=== PATIENT | female | born 1965 | race Caucasian/White ===

== ENCOUNTER 2021-07-06 12:48 | Emergency (ER) | payer OTHER ==
[2021-07-06 13:04] VITALS: BP 135/88; PULSE 83; TEMP 99; BMI 24.1
[2021-07-07 16:09] LABS: SARS-CoV-2 NAA Not Detected (Not Detected)
== END 2021-07-06 14:27 | disposition home or self-care (01) ==
LOC: FER 12:48
DX: J40 Bronchitis, not specified as acute or chronic (principal); Z11.52 Encounter for screening for COVID-19
CPT/HCPCS: 71045-TC-FY; 99284-25; C9803; U0003; U0005

== ENCOUNTER 2021-11-30 02:28 | Emergency (ER) | payer OTHER ==
[2021-11-30 02:34] VITALS: BP 148/90; PULSE 82; TEMP 98.9; BMI 23.9
== END 2021-11-30 03:21 | disposition home or self-care (01) ==
LOC: FER 02:28
DX: F41.9 Anxiety disorder, unspecified (principal)
CPT/HCPCS: 99281-25

== ENCOUNTER 2022-02-03 10:54 | Emergency (ER) | payer OTHER ==
[2022-02-03 11:07] VITALS: BP 130/77; PULSE 73; TEMP 98.6; BMI 23.8
== END 2022-02-03 11:45 | disposition home or self-care (01) ==
LOC: FER 10:54
DX: G51.32 Clonic hemifacial spasm, left (principal); H53.8 Other visual disturbances
CPT/HCPCS: 99281-25

== ENCOUNTER 2022-04-12 11:07 | Emergency (ER) | payer OTHER ==
[2022-04-12 11:23] VITALS: BP 120/68; PULSE 67; TEMP 97.9; BMI 23.6
== END 2022-04-12 12:31 | disposition home or self-care (01) ==
LOC: FER 11:07
DX: R55 Syncope and collapse (principal)
CPT/HCPCS: 93005; 93010; 99283-25

== ENCOUNTER 2022-04-20 00:09 | Emergency (ER) | payer OTHER ==
[2022-04-20] MEDS ORDERED: SODIUM CHLORIDE 1,000 ML IV STA (00:32)
[2022-04-20] MEDS ORDERED: ACETAMINOPHEN 1000 MG/100 ML BAG IVPB ONE (00:32)
[2022-04-20] MEDS ORDERED: METOCLOPRAMIDE HCL INJECTION 10 MG/2 ML VIAL IVPB ONE (00:32)
[2022-04-20 00:36] VITALS: TEMP 98.8; BMI 23.1
[2022-04-20] MEDS ORDERED: METOCLOPRAMIDE HCL INJECTION 10 MG/2 ML VIAL ONE (00:46)
[2022-04-20] MEDS ORDERED: ACETAMINOPHEN INJECTION 100 ML IVPB ONE (00:47)
[2022-04-20 01:47] LABS: HEMATOCRIT 32.2 % (32.4-45.2); HEMOGLOBIN 10.6 GM/dL (10.7-15.3); MCH 27.5 pg (25.7-33.7); MCHC 32.9 g/dl (32.0-36.0); MEAN CELL VOLUME 83.6 fl (80-96); MEAN PLT VOLUME 9.6 fl (7.5-11.1); PLATELET COUNT 235 10^3/uL (134-434); RBC 3.84 M/mm3 (3.60-5.2); RDW 13.9 % (11.6-15.6); WHITE BLOOD COUNT 19.3 K/mm3 (4.0-10.0)
[2022-04-20 02:10] LABS: ALBUMIN 3.2 g/dl (3.4-5.0); CALCIUM 8.6 mg/dL (8.5-10.1)
[2022-04-20 02:15] LABS: BILIRUBIN,TOTAL 0.3 mg/dL (0.2-1); TOT PROT 6.4 g/dl (6.4-8.2)
[2022-04-20 02:24] LABS: BLOOD UREA NITROGEN 29.8 mg/dL (7-18)
[2022-04-20 02:56] LABS: ANISOCYTOSIS 1+; MACROCYTOSIS 0
[2022-04-20 02:59] VITALS: BP 129/79; PULSE 74
== END 2022-04-20 04:58 | disposition short-term general hospital (02) ==
LOC: FER 00:09
PROC: 3E0333Z Introduction of Anti-inflammatory into Peripheral Vein, Percutaneous Approach (ICD-10-PCS; principal; 2022-04-20)
PROC: 3E0337Z Introduction of Electrolytic and Water Balance Substance into Peripheral Vein, Percutaneous Approach (ICD-10-PCS; 2022-04-20)
DX: I62.00 Nontraumatic subdural hemorrhage, unspecified (principal); R53.1 Weakness; R94.5 Abnormal results of liver function studies
CPT/HCPCS: 0241U-QW; 36415; 70450-TC; 80053; 84439; 84443; 85025; 87040; 99291; 99292

== ENCOUNTER 2024-02-15 13:48 | Emergency (ER) | payer OTHER ==
[2024-02-15 14:00] VITALS: BP 136/72; PULSE 82; RESP 18; TEMP 98.3; BMI 22.6
[2024-02-15] MEDS ORDERED: KETOROLAC TROMETHAMINE 30 MG/1 ML VIAL ONE (14:24)
[2024-02-15] MEDS: KETOROLAC TROMETHAMINE 30 MG/1 ML VIAL IM ONE (14:28)
[2024-02-15] MEDS ORDERED: ACETAMINOPHEN 325 MG TABLET (FP) ONE (14:35)
[2024-02-15] MEDS: ACETAMINOPHEN 325 MG TABLET (FP) PO ONE (14:36)
== END 2024-02-15 15:08 | disposition home or self-care (01) ==
LOC: FER 13:48
PROC: 3E0233Z Introduction of Anti-inflammatory into Muscle, Percutaneous Approach (ICD-10-PCS; principal; 2024-02-15)
DX: M54.50 Low back pain, unspecified (principal); S39.012A Strain of muscle, fascia and tendon of lower back, initial encounter; X58.XXXA Exposure to other specified factors, initial encounter
CPT/HCPCS: 72100-TC-FY; 99284-25